=== PATIENT | female | born 1945 | race Two or more races ===

== ENCOUNTER 2023-11-03 11:27 | Emergency (ER) | payer MEDICARE, OTHER ==
[~2023-11-03] VITALS: Ht 154.9 cm; Wt 67.1 kg
[2023-11-03 13:24] VITALS: BP 163/58; PULSE 75; RESP 18; TEMP 98; O2SAT 97
[2023-11-03] MEDS ORDERED: IBUP1TAB4 PO (13:32)
[2023-11-03] MEDS: KETOROLAC TROMETH 30 MG/ML 1ML VIAL IM ONE (13:33)
== END 2023-11-03 13:34 | disposition home or self-care (01) ==
LOC: ER 11:27
DX: M54.12 Radiculopathy, cervical region (principal); I10 Essential (primary) hypertension; Z88.5 Allergy status to narcotic agent
CPT/HCPCS: 96372; 99283; J1885